=== PATIENT | female | born 1995 | race Caucasian/White ===

== ENCOUNTER 2017-04-04 13:04 | Emergency (ER) | payer OTHER ==
[2017-04-04 13:20] VITALS: O2SAT 97
[2017-04-04 13:45] LABS: BASOPHIL % 0.1 % (0.0-0.4); Eosinophil % 0.3 % (0.00-5.0); Granulocytes % 90.4 % (36.0-66.0); Lymphocytes % 4.8 % (24.0-44.0); Mean Cell Volume 89.4 fl (78-100); Mean Corpuscular Hemoglobin 29.8 pg (26-32); Mean Platelet Volume 10.8 fl (6-9.5); Monocytes % 4.4 % (0.0-12.0); Platelet Count 274 K/mm3 (150-450); Red Cell Distribution Width 13.5 % (11.5-14.0); White Blood Count 14.9 K/mm3 (4.0-10.5)
[2017-04-04 14:02] LABS: ALBUMIN 3.2 g/dL (3.4-5.0); ALKALINE PHOSPHATASE 86 U/L (46-116); ANION GAP 15.1 MEQ/L (5-15); BLOOD UREA NITROGEN 10 mg/dL (9-20); CHLORIDE 106 mEq/L (98-107); Carbon Dioxide 24.2 mEq/L (21-32); Glucose 100 MG/DL (70-110); LIPASE 72 U/L (73-393); Potassium 3.2 mEq/L (3.5-5.1); SGOT/AST 14 U/L (15-37); SGPT/ALT 12 U/L (12-78); SODIUM 142 mEq/L (136-145); Total Protein 7.5 gm/dL (6.4-8.2)
--- NOTE | 2017-04-04 14:13 | XRAY ---
Indication: Abdominal pain. Two-dimensional right upper quadrant abdominal sonogram performed. Comparison: None Gallbladder normally distended without gallstones, wall thickening, or pericholecystic fluid. Common bile duct measures 4.1 mm. No intrahepatic biliary distention. Remaining visualized portions of the liver, pancreas, and right kidney sonographically unremarkable. Right kidney measures 12.3 cm in length. No ascites. Impression: Negative gallbladder sonogram.
[2017-04-04] MEDS ORDERED: ROCEPHIN 1 Gm-D5w 50 ml Bag** 1 G/50 ML IVPB IV ONE (14:23)
--- NOTE | 2017-04-04 14:31 | ERPHSYRPT ---
- History of Present Illness Time Seen by Provider: 04/04/17 13:15 Historian: patient Exam Limitations: no limitations Patient Subjective Stated Complaint: pt states at 0900 this morning she began having right upper quad abdominal pain. pt states she was seen at [facility] and then decided she wanted see in the er. Triage Nursing Assessment: pt pink, warm, dry. abdomen lasrge. soft. tender right upper quad. bowel sounds present in all 4 quads. pt afebrile. Timing/Duration: today Activities at Onset: other (at fatty and fried foods last pm) Quality: sharpness Abdominal Pain Onset Location: RUQ Pain Radiation: no radiation Severity of Pain-Max: severe Severity of Pain-Current: severe Modifying Factors: Improves With: nothing Associated Symptoms: vomiting Previous symptoms: no prior history Allergies/Adverse Reactions: No Known Drug Allergies Allergy (Unverified 04/04/17 13:19) Home Medications: Calcium/D3/K/FA/B12/C/Minerals [Ortho-Tabs] 1 each PO UD 04/04/17 [History] Hx Tetanus, Diphtheria Vaccination/Date Given: Yes (up to date) Hx Influenza Vaccination/Date Given: Yes Hx Pneumococcal Vaccination/Date Given: No Immunizations Up to Date: Yes - Review of Systems Constitutional: No Symptoms Eyes: No Symptoms Ears, Nose, & Throat: No Symptoms Respiratory: No Symptoms Cardiac: No Symptoms Abdominal/Gastrointestinal: Abdominal Pain, Vomiting, Diarrhea, No Constipation , No Hematemesis, No Hematochezia, No Melena Musculoskeletal: No Symptoms Skin: No Symptoms Neurological: No Symptoms Hematologic/Lymphatic: No Symptoms Immunological/Allergic: No Symptoms - Past Medical History Pertinent Past Medical History: No Psycho-Social History: Other - Past Surgical History Past Surgical History: Yes Female Surgical History: Section - Social History Smoking Status: Current every day smoker How long have you smoked: 4 Exposure to second hand smoke: No Drug Use: none Patient Lives Alone: No - Female History Hx Last Menstrual Period: midFebruary 2017 Hx Now: No - Nursing Vital Signs Nursing Vital Signs: Initial Vital Signs Temperature 99.1 F Temperature Source Oral Pulse Rate 97 Respiratory Rate 18 Blood Pressure [Right Arm] 164/107 Pain Intensity 10 - Physical Exam General Appearance: moderate distress Eye Exam: eyes nml inspection Ears, Nose, Throat Exam: normal ENT inspection, pharynx normal Neck Exam: normal inspection, non-tender, supple, full range of motion Respiratory Exam: normal breath sounds, lungs clear, airway intact Cardiovascular Exam: regular rate/rhythm, normal heart sounds, normal peripheral pulses Gastrointestinal/Abdomen Exam: soft, normal bowel sounds, tenderness (RUQ) Extremity Exam: normal inspection, normal range of motion, pelvis stable Neurologic Exam: alert, oriented x 3, cooperative Skin Exam: normal color, warm, dry SpO2 Interpretation: normal SpO2: 97 Oxygen Delivery: Room Air - Course Nursing assessment & vital signs reviewed: Yes - Radiology Ultrasound Exam Gallbladder Ultrasound: tele radiology report, negative Ordered Tests: Active Orders 24 hr Category Date Time Status IV Insertion STAT Care 04/04/17 13:21 Active cath [Cath for Specimen-Straight] STAT Care 04/04/17 13:40 Active GALLBLADDER [US] Stat Exams 04/04/17 13:19 Completed CBC W DIFF Stat Lab 04/04/17 13:35 Completed CMP Stat Lab 04/04/17 13:35 Completed HCG,QUALITATIVE URINE Stat Lab 04/04/17 13:39 Completed LIPASE Stat Lab 04/04/17 13:35 Completed Lab/Rad Data: Laboratory Result Diagrams 04/04/17 13:35 04/04/17 13:35 Laboratory Results 04/04/17 04/04/17 04/04/17 Range/Units 13:39 13:35 13:35 WBC 14.9 H (4.0-10.5) K/mm3 RBC 4.90 (4.1-5.4) M/mm3 Hgb 14.6 (12.0-16.0) gm/dl Hct 43.8 (35-47) % MCV 89.4 (78-100) fl MCH 29.8 (26-32) pg MCHC 33.3 (32-36) g/dl RDW 13.5 (11.5-14.0) % Plt Count 274 (150-450) K/mm3 MPV 10.8 H (6-9.5) fl Gran % 90.4 H (36.0-66.0) % Lymphocytes % 4.8 L (24.0-44.0) % Monocytes % 4.4 (0.0-12.0) % Eosinophils % 0.3 (0.00-5.0) % Basophils % 0.1 (0.0-0.4) % Basophils # 0.02 (0-0.4) Sodium 142 (136-145) mEq/L Potassium 3.2 L (3.5-5.1) mEq/L Chloride 106 (98-107) mEq/L Carbon Dioxide 24.2 (21-32) mEq/L Anion Gap 15.1 H (5-15) MEQ/L BUN 10 (9-20) mg/dL Creatinine 0.81 (0.55-1.30) mg/dl Estimated GFR > 60 ML/MIN Glucose 100 (70-110) MG/DL Calcium 8.7 (8.5-10.1) mg/dL Total Bilirubin 0.40 (0.2-1.0) mg/dL AST 14 L (15-37) U/L ALT 12 (12-78) U/L Alkaline Phosphatase 86 (46-116) U/L Serum Total Protein 7.5 (6.4-8.2) gm/dL Albumin 3.2 L (3.4-5.0) g/dL Lipase 72 L (73-393) U/L Urine HCG, Qual NEGATIVE (Negative) - Progress Progress: improved Will see patient in: office, other (PCP 1 week) Counseled pt/family regarding: lab results, diagnosis, need for follow-up, rad results - Departure Time of Disposition: 14:30 Departure Disposition: Home Clinical Impression: Abdominal pain Qualifiers: Abdominal location: right upper quadrant Qualified Code(s): R10.11 - Right upper quadrant pain Condition: Stable Critical Care Time: No Additional Instructions: See your doctor for referral for HIDA scan as oupatient only.
[2017-04-04 14:44] VITALS: BP 162/98; PULSE 100
== END 2017-04-04 14:45 | disposition home or self-care (01) ==
LOC: ED 13:04
DX: R10.11 Right upper quadrant pain (principal); R11.10 Vomiting, unspecified; R19.7 Diarrhea, unspecified
CPT/HCPCS: 36000; 36415; 76705; 80053; 83690; 84703; 85025; 99283; 99284; J0696; P9612

== ENCOUNTER 2018-03-30 21:32 | Observation (INO) | payer OTHER ==
[2018-03-30] MEDS ORDERED: Zofran 4 MG/2 ML VIAL IV ONE (21:42)
[2018-03-30] MEDS ORDERED: Hydromorphone 1 mg/ml Ampule IV ONE ×3 (21:42→23:38)
[2018-03-30] MEDS ORDERED: Sodium Chloride 0.9% 1000 ML 1,000 ML IV SCH (21:45)
[2018-03-30] MEDS ORDERED: Adacel Vial IM ONE ×2 (21:49→21:53)
[2018-03-30 21:50] LABS: BASOPHIL % 0.2 % (0.0-0.4); Basophil (Absolute #) 0.02 (0-0.4); Eosinophil % 0.5 % (0.00-5.0); Eosinophil (Absolute #) 0.07 (0-0.5); Granulocyte Absolute (ANC) 9.62 (1.4-6.9); Granulocytes % 73.3 % (36.0-66.0); Hematocrit 41.7 % (35-47); Hemoglobin 14.1 gm/dl (12.0-16.0); Lymphocyte (Absolute #) 2.67 (1.0-4.6); Lymphocytes % 20.3 % (24.0-44.0); Mean Cell Volume 88.2 fl (78-100); Mean Corpuscular Hemoglobin 29.8 pg (26-32); Mean Corpuscular Hgb Concent. 33.8 g/dl (32-36); Mean Platelet Volume 10.7 fl (6-9.5); Monocyte (Absolute #) 0.75 (0.0-1.3); Monocytes % 5.7 % (0.0-12.0); Platelet Count 308 K/mm3 (150-450); Red Blood Count 4.73 M/mm3 (4.1-5.4); Red Cell Distribution Width 13.6 % (11.5-14.0); White Blood Count 13.1 K/mm3 (4.0-10.5)
[2018-03-30] MEDS ORDERED: DILAUDID 2 MG INJECTION ONE ×2 (21:52→23:49)
[2018-03-30] MEDS ORDERED: Zofran 4 MG/2 ML VIAL ONE (21:52)
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
[2018-03-30 22:05] LABS: ALBUMIN 4.3 g/dL (3.5-5.0); ALKALINE PHOSPHATASE 93 U/L (38-126); AMYLASE 62 U/L (30-110); ANION GAP 11.3 MEQ/L (5-15); BLOOD UREA NITROGEN 16 mg/dL (7-17); CHLORIDE 100 mmol/L (98-107); Calcium 9.3 mg/dL (8.4-10.2); Carbon Dioxide 28 mmol/L (22-30); Creatinine 1 0.75 mg/dL (0.52-1.04); Glucose 151 mg/dL (74-106); LIPASE 44 U/L (23-300); SGOT/AST 20 U/L (14-36); SGPT/ALT 19 U/L (0-35); SODIUM 136 mmol/L (137-145); Total Protein 7.3 g/dL (6.3-8.2)
[2018-03-30 22:08] LABS: ETHYL ALCOHOL < 10 mg/dL (0-10); Potassium 2.6 mmol/L (3.5-5.1)
[2018-03-30] MEDS ORDERED: BACIGUENT PACKET ONE (22:30)
[2018-03-30] MEDS ORDERED: ROCEPHIN 1 Gm-D5w 50 ml Bag** 1 G/50 ML IVPB IV STA (23:56)
[2018-03-31] MEDS ORDERED: POTASSIUM CHLORIDE 20 mEq IN WATER 100ML 20 MEQ/100 ML BAG IV ONE ×3 (00:26→06:02)
[2018-03-31] MEDS ORDERED: Zofran 4 MG/2 ML VIAL IV PRN (01:10)
[2018-03-31] MEDS ORDERED: MORPHINE SULFATE 4 MG INJ IV PRN (01:10)
[2018-03-31] MEDS ORDERED: Sodium Chloride 0.9% 1000 ML 1,000 ML IV SCH (01:15)
[2018-03-31] MEDS ORDERED: POTASSIUM CHLORIDE 20 mEq IN WATER 100ML 100 ML IV ONE (01:26)
[2018-03-31] MEDS: NORCO 5/325 MG PO PRN ×2 (02:37→08:21)
[2018-03-31 03:04] LABS: Appearance CLEAR (CLEAR); Bilirubin NEGATIVE (NEGATIVE); Blood NEGATIVE Ery/ul (0-5); Glucose NEGATIVE (NEGATIVE); Ketones NEGATIVE (NEGATIVE); Leukocyte Esterase NEGATIVE (NEGATIVE); Nitrite NEGATIVE (NEGATIVE); Protein,Urine Dip NEGATIVE (Negative); Urobilinogen NORMAL mg/dL (0-1)
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
[2018-03-31] MEDS ORDERED: PERCOCET TABLET 5/325MG PO PRN (09:49)
[2018-03-31] MEDS ORDERED: Cyclobenzaprine 10 MG PO PRN (09:49)
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
[2018-03-31] MEDS ORDERED: Klor Con 10 MEQ PO SCH (10:00)
[2018-03-31] MEDS ORDERED: AQUAPHOR OINTMENT 50 GM TP SCH (10:00)
[2018-03-31 10:31] LABS: ANION GAP 8.8 MEQ/L (5-15); BLOOD UREA NITROGEN 9 mg/dL (7-17); CHLORIDE 105 mmol/L (98-107); Calcium 8.3 mg/dL (8.4-10.2); Carbon Dioxide 27 mmol/L (22-30); Creatinine 1 0.56 mg/dL (0.52-1.04); Glucose 120 mg/dL (74-106); Potassium 3.4 mmol/L (3.5-5.1); SODIUM 137 mmol/L (137-145)
[2018-03-31 12:03] VITALS: BP 165/122; PULSE 100; O2SAT 95
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
[2018-03-31] MEDS ORDERED: ROCEPHIN 1 Gm-D5w 50 ml Bag** 1 G/50 ML IVPB IV SCH (22:00)
== END 2018-03-31 14:35 | disposition home or self-care (01) ==
LOC: ED 21:32 → MED SURG 03-31 02:17
PROVIDERS: ADMIT Family Medicine; ATTEND Family Medicine
DX: S40.212A Abrasion of left shoulder, initial encounter (principal); S80.212A Abrasion, left knee, initial encounter; S06.0X0A Concussion without loss of consciousness, initial encounter; S02.2XXA Fracture of nasal bones, initial encounter for closed fracture; M25.519 Pain in unspecified shoulder; V89.2XXA Person injured in unspecified motor-vehicle accident, traffic, initial encounter; E87.6 Hypokalemia; Z72.0 Tobacco use
CPT/HCPCS: 36415; 70450; 70486; 71260; 72125; 73030; 73080; 73110; 73562; 74177; 80048; 80053; 80307; 81002; 82150; 83690; 83735; 85025; 90471; 90715; 93005; 93268; 94760; 96360; 96361; 96365; 96366; 96367; 96374; 96375; 96376; 99285; J0696; J1170; J2270; J2405; J3480; A9270-GY; G0378; G0480

== ENCOUNTER 2019-01-11 21:34 | Emergency (ER) | payer OTHER | END 2019-01-11 23:46 | disposition home or self-care (01) | LOC: ED 21:34 ==

== ENCOUNTER 2019-06-10 23:26 | Emergency (ER) | payer OTHER ==
--- NOTE | 2019-06-10 23:56 | ERPHSYRPT ---
- History of Present Illness Time Seen by Provider: 06/10/19 23:45 Source: patient, family Exam Limitations: no limitations Patient Subjective Stated Complaint: pt states, "I walked out of a room upstairs and a bug flew into me and I fell down the stairs". Triage Nursing Assessment: pt alert and oriented, pleasant, ambulated into er. Pt fell down stairs landing on her side, c/o lt sided neck pain. Pt states, "I can't hardly move it on the left side". Lungs clear, heart tones reg, abd soft with active bs x4 quad, non-tender. Physician History: 24 y/o white female present with neck pain after a fall forward down stairs. pt states a bug flew at her face as she began stepping down steps and then lost her balance Occurred: just prior to arrival Reason for Fall: lost balance Injuries/Pain Location: head, neck Loss of Consciousness: no loss of consciousness Quality: aching Severity of Pain-Max: moderate Severity of Pain-Current: moderate Modifying Factors: Improves With: movement (hurts her neck) Associated Symptoms (Fall): neck pain, No abdominal pain, No back pain, No chest pain, No extremity injury, No muscle spasms, No ringing in ears, No slurred speech, No vomiting, No vision changes Allergies/Adverse Reactions: No Known Drug Allergies Allergy (Verified 01/11/19 21:45) Home Medications: Citalopram Hydrobromide 20 mg* [ceLEXa 20 MG] 1 tab PO DAILY 01/11/19 [ History] Prazosin HCl 1 mg PO HS 06/10/19 [History] Sertraline HCl 50 mg [Zoloft 50 mg Tablet] 50 mg PO DAILY 06/10/19 [History] Hx Tetanus, Diphtheria Vaccination/Date Given: Yes Hx Influenza Vaccination/Date Given: Yes Hx Pneumococcal Vaccination/Date Given: No Immunizations Up to Date: Yes - Review of Systems Constitutional: No Symptoms Eyes: No Symptoms Ears, Nose, & Throat: No Symptoms Respiratory: No Symptoms Cardiac: No Symptoms Abdominal/Gastrointestinal: No Symptoms Genitourinary Symptoms: No Symptoms Musculoskeletal: Neck Pain, Fall, Injury Skin: No Symptoms Neurological: No Symptoms, Headache Psychological: No Symptoms Endocrine: No Symptoms Hematologic/Lymphatic: No Symptoms Immunological/Allergic: No Symptoms All Other Systems: Reviewed and Negative - Past Medical History Pertinent Past Medical History: Yes Neurological History: Migraines ENT History: No Pertinent History Cardiac History: No Pertinent History Respiratory History: No Pertinent History Endocrine Medical History: No Pertinent History Musculoskeletal History: Fractures GI Medical History: No Pertinent History History: No Pertinent History Psycho-Social History: Anxiety, Depression, Other Female Reproductive Disorders: No Pertinent History Other Medical History: Fracture Pelvis 15 Years Old, PTSD, - Past Surgical History Past Surgical History: Yes Neuro Surgical History: No Pertinent History Cardiac: No Pertinent History Respiratory: No Pertinent History Gastrointestinal: No Pertinent History Genitourinary: No Pertinent History Musculoskeletal: No Pertinent History, Orthopedic Surgery Female Surgical History: Section Other Surgical History: Finger surgery Dec 17 (HX OF 2 FINGER SURGERIES) - Social History Smoking Status: Current every day smoker How long have you smoked: 8 yrs Exposure to second hand smoke: Yes Drug Use: none Patient Lives Alone: No - Female History Hx Now: No - Nursing Vital Signs Nursing Vital Signs: Initial Vital Signs Temperature 98.9 F 06/10/19 23:27 Pulse Rate 102 H 06/10/19 23:27 Respiratory Rate 18 06/10/19 23:27 Blood Pressure 169/121 06/10/19 23:27 O2 Sat by Pulse Oximetry 96 06/10/19 23:27 Pain Scale Pain Intensity 7 - Johnny Coma Score Best Eye Response (Kinsey): (4) open spontaneously Best Verbal Response (Kinsey): (5) oriented Best Motor Response (Johnny): (6) obeys commands Kinsey Total: 15 - Physical Exam General Appearance: mild distress, alert, anxiety Head Injury: no evidence of injury, tenderness, No active bleeding, No Tracey's Sign, No contusions, No ecchymosis, No lacerations, No raccoon eyes, No swelling Eye Exam: PERRL/EOMI, eyes nml inspection, No photophobia ENT Exam: airway nml, nml ext.inspection, No evidence of ENT injury Neck Exam: trachea midline, full range of motion, normal alignment, normal inspection, muscle spasm, pain on movement of neck, stiff neck, tenderness Respiratory/Chest Exam: No chest tenderness, No respiratory distress, No crepitus, No rib tenderness Cardiovascular Exam: normal heart sounds, normal peripheral pulses, No regular rate/rhythm Gastrointestinal Exam: soft, normal bowel sounds, No tenderness, No guarding Rectal Exam: not done Back Exam: normal inspection, normal range of motion, No CVA tenderness, No vertebral tenderness Extremity Exam: normal inspection, normal range of motion, pelvis stable Neurologic Exam: alert, oriented x 3, cooperative, cartridge loader II-XII nml as tested, normal mood/affect, nml cerebellar function, nml station & gait, sensation nml Skin Exam: normal color, warm, dry SpO2 Interpretation: normal SpO2: 96 O2 Delivery: Room Air - Course Nursing assessment & vital signs reviewed: Yes Ordered Tests: Active Orders 24 hr Category Date Time Status CERVICAL SPINE WO CONTRAST [CT] Stat Exams 06/10/19 23:56 Taken HEAD WITHOUT CONTRAST [CT] Stat Exams 06/10/19 23:56 Taken Medication Summary Discontinued Medications Generic Name Dose Route Start Last Admin Trade Name Freq PRN Reason Stop Dose Admin Cyclobenzaprine HCl 10 mg 06/11/19 00:29 Cyclobenzaprine 10 Mg PO 06/11/19 00:30 STAT ONE Oxycodone/Acetaminophen 1 tab 06/11/19 00:28 Percocet Tablet 5/325mg PO 06/11/19 00:29 STAT STA Prednisone 10 mg 06/11/19 00:29 Deltasone 10 Mg PO 06/11/19 00:30 STAT ONE - Progress Progress: improved Progress Note: 06/11/19 01:[address] cspine- no acute process. Counseled pt/family regarding: diagnosis, need for follow-up, rad results - Departure Departure Disposition: Home Clinical Impression: Fall, Cervical strain, acute Condition: Stable Critical Care Time: No Referrals: JOS NUÑEZ [Primary Care Provider] - Additional Instructions: ice pack to area 3 times daily for 2 days. follow up with primary doctor for persistent symptoms Prescriptions: Hydrocodone/APAP 5/325 [Sagle 5/325 mg] 1 each PO Q8H PRN PRN #10 tablet MDD 3 PRN Reason: Pain Carisoprodol 350 mg [Soma 350 mg] 350 mg PO Q12H PRN PRN #8 tablet PRN Reason: Muscle Spasms Prednisone 10 mg [Deltasone 10 mg] 10 mg PO TID #12 tablet
[2019-06-11] MEDS ORDERED: Cyclobenzaprine 10 MG ONE (01:16)
[2019-06-11] MEDS ORDERED: PERCOCET TABLET 5/325MG ONE (01:16)
[2019-06-11] MEDS: PERCOCET TABLET 5/325MG PO STA (01:30)
[2019-06-11] MEDS: Cyclobenzaprine 10 MG PO ONE (01:30)
[2019-06-11] MEDS: DELTASONE 10 MG PO ONE (01:31)
[2019-06-11 01:55] VITALS: BP 148/99; PULSE 87; O2SAT 98
--- NOTE | 2019-06-11 09:01 | XRAY ---
Indication: Left head injury and headache following fall. Multiple contiguous axial images obtained through the head without contrast. Comparison: March 30, 2018. Again normal appearing brain parenchyma, ventricles, and bony calvarium. Visualized paranasal sinuses and mastoid air cells are clear. Impression: Normal CT head without contrast exam. Comment: Preliminary interpretation was made by [facility]. No discrepancy. CT DI 49.27
--- NOTE | 2019-06-11 09:03 | XRAY ---
Indication: Left neck pain following fall. Multiple contiguous axial images obtained through the cervical spine. Sagittal and coronal reformatted images obtained. Comparison: March 30, 2018. Axial images again negative for acute fracture, suspicious bony lesions, or spinal canal stenosis. Sagittal and coronal reformatted images again demonstrates straightening of the cervical lordosis. Vertebral body heights and disc spaces maintained. No acute compression fracture, subluxation, or jumped facet. Normal appearing craniocervical junction. Visualized noncontrasted soft tissues including lung apices unremarkable. Impression: 1. Stable cervical lordotic straightening, positional versus paraspinal spasm. 2. Remaining CT cervical spine is negative. Comment: Preliminary interpretation was made by [facility]. No critical discrepancy. CT DI 55.49
== END 2019-06-11 01:52 | disposition home or self-care (01) ==
LOC: ED 23:26
DX: S16.1XXA Strain of muscle, fascia and tendon at neck level, initial encounter (principal); W10.8XXA Fall (on) (from) other stairs and steps, initial encounter
CPT/HCPCS: 70450; 72125; 99284; A9270-GY

== ENCOUNTER 2019-08-29 08:15 | Emergency (ER) | payer OTHER ==
--- NOTE | 2019-08-29 08:18 | ERPHSYRPT ---
- History of Present Illness Time Seen by Provider: 08/29/19 08:17 Source: patient Exam Limitations: no limitations Physician History: 24 y/o riight handed white female presents with left hand pain. 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 pt has had surgery left hand 3rd digit with metal jl in place. this is where the pop and pain were. Occurred: just prior to arrival Method of Injury: other (lifting) Quality: aching Severity of Pain-Max: mild Severity of Pain-Current: mild Extremities Pain Location: 3rd finger: left Modifying Factors: Improves With: movement Associated Symptoms: none Allergies/Adverse Reactions: No Known Drug Allergies Allergy (Verified 08/29/19 08:27) Hx Tetanus, Diphtheria Vaccination/Date Given: Yes Hx Influenza Vaccination/Date Given: Yes Hx Pneumococcal Vaccination/Date Given: No - Review of Systems Constitutional: No Symptoms Eyes: No Symptoms Ears, Nose, & Throat: No Symptoms Respiratory: No Symptoms Cardiac: No Symptoms Abdominal/Gastrointestinal: No Symptoms Genitourinary Symptoms: No Symptoms Musculoskeletal: Other (left 3rd finger pain) Skin: No Symptoms Neurological: No Symptoms Psychological: No Symptoms Endocrine: No Symptoms Hematologic/Lymphatic: No Symptoms Immunological/Allergic: No Symptoms All Other Systems: Reviewed and Negative - Past Medical History Pertinent Past Medical History: Yes Neurological History: Migraines ENT History: No Pertinent History Cardiac History: No Pertinent History Respiratory History: No Pertinent History Endocrine Medical History: No Pertinent History Musculoskeletal History: Fractures GI Medical History: No Pertinent History History: No Pertinent History Psycho-Social History: Anxiety, Depression, Other Female Reproductive Disorders: No Pertinent History Other Medical History: Fracture Pelvis 15 Years Old, PTSD, - Past Surgical History Past Surgical History: Yes Neuro Surgical History: No Pertinent History Cardiac: No Pertinent History Respiratory: No Pertinent History Gastrointestinal: No Pertinent History Genitourinary: No Pertinent History Musculoskeletal: No Pertinent History, Orthopedic Surgery Female Surgical History: Section Other Surgical History: Finger surgery Dec 17 (HX OF 2 FINGER SURGERIES) - Social History Smoking Status: Current every day smoker How long have you smoked: 8 yrs Exposure to second hand smoke: Yes Drug Use: none Patient Lives Alone: No - Nursing Vital Signs Nursing Vital Signs: Initial Vital Signs Temperature 98.2 F 08/29/19 08:19 Pulse Rate 101 H 08/29/19 08:19 Respiratory Rate 16 08/29/19 08:19 Blood Pressure 145/119 08/29/19 08:19 O2 Sat by Pulse Oximetry 96 08/29/19 08:19 Pain Scale Pain Intensity 5 - Physical Exam General Appearance: no apparent distress, alert, anxiety Eyes, Ears, Nose, Throat Exam: normal ENT inspection, moist mucous membranes Neck Exam: normal inspection, non-tender, supple, full range of motion Cardiovascular/Respiratory Exam: chest non-tender Abdominal Exam: non-tender Back Exam: normal inspection, normal range of motion, No CVA tenderness, No vertebral tenderness Shoulder Exam: normal inspection, non-tender, no evidence of injury, normal ROM Elbow/Forearm Exam: normal inspection, non-tender, no evidence of injury, normal ROM Wrist Exam: normal inspection, non-tender, no evidence of injury, normal ROM Hand Exam: normal inspection, no evidence of injury, normal ROM (pt chronically can only flex or extend 3rd dip joint after metal jl placement) Neuro/Tendon Exam: normal sensation, normal motor functions, normal tendon functions Mental Status Exam: alert, oriented x 3, cooperative Skin Exam: normal color, warm, dry SpO2 Interpretation: normal O2 Delivery: Room Air - Course Nursing assessment & vital signs reviewed: Yes Ordered Tests: Active Orders 24 hr Category Date Time Status HAND (MINIMUM 3 VIEWS) Stat Exams 08/29/19 08:39 Completed - Progress Progress: unchanged Progress Note: 08/29/19 09:20 xray left hand- no acute fx or dislocation Counseled pt/family regarding: diagnosis, need for follow-up, rad results - Departure Departure Disposition: Home Clinical Impression: Finger pain, left Condition: Stable Critical Care Time: No Referrals: JOS NUÑEZ [Primary Care Provider] - Additional Instructions: ice pack to area 3 times daily. follow up with hand surgeon or primary doctor for persistent symptoms. tylenol and ibuprofen for pain
--- NOTE | 2019-08-29 09:18 | XRAY ---
Indication: Pain with lifting. History 3rd finger surgery. Comparison: None 3 views of the left hand demonstrates 3rd finger soft tissue linear radiopacity presumed related to patient's surgery. No other bony, articular, or soft tissue abnormalities.
[2019-08-29 09:32] VITALS: BP 142/108; PULSE 81; O2SAT 97
== END 2019-08-29 09:30 ==
LOC: ED 08:15
DX: Z98.890 Other specified postprocedural states (principal); X50.9XXA Other and unspecified overexertion or strenuous movements or postures, initial encounter
CPT/HCPCS: 73130; 99283

== ENCOUNTER 2019-10-24 08:51 | Emergency (ER) | payer OTHER ==
--- NOTE | 2019-10-24 09:40 | XRAY ---
Indication: Right neck pain 1.5 weeks. No known injury. Comparison: CT cervical spine June 10, 2019. 3 views of the cervical spine unchanged again with cervical lordotic straightening. Vertebral body heights/disc spaces maintained. No new/acute findings.
--- NOTE | 2019-10-24 09:43 | ERPHSYRPT ---
- History of Present Illness Time Seen by Provider: 10/24/19 09:00 Source: patient Exam Limitations: no limitations Patient Subjective Stated Complaint: pt reports neck pain for approx 1.5 weeks, states that her pain is to the posterior neck. pt denies any injury or accident at this time. pt reports intermittent dizziness upon standing as well. Triage Nursing Assessment: pt is aox3, pupils perrl, afebrile, resps easy and non labored, cap refill < 3 seconds, radial pulses strong and equal, pt sensation and ROM intact. no obvious injury noted, skin is intact. pt ambulated to trt room with no difficulties. Physician History: 24 y o female who presents with pain in the left side of the neck from the shoulder level to the occiput. she denies any specific injury and the pain has been present for weeks. Review indicates his CTs of [facility] includin 2008, , 2018. previous CT scans of her neck indicate paraspinal spasm. Timing/Duration: day(s) (10) Severity: moderate Modifying Factors: Improves With: movement, acetaminophen Associated Symptoms: headaches Allergies/Adverse Reactions: No Known Drug Allergies Allergy (Verified 10/24/19 09:13) Hx Tetanus, Diphtheria Vaccination/Date Given: Yes Hx Influenza Vaccination/Date Given: No Hx Pneumococcal Vaccination/Date Given: No Immunizations Up to Date: Yes - Review of Systems Constitutional: No Fever, No Chills Eyes: No Symptoms Ears, Nose, & Throat: No Symptoms Respiratory: No Cough, No Dyspnea Cardiac: No Chest Pain, No Edema, No Syncope Abdominal/Gastrointestinal: No Abdominal Pain, No Nausea, No Vomiting, No Diarrhea Genitourinary Symptoms: No Dysuria Musculoskeletal: Joint Pain ( right side of the neck ttender to palpation), No Back Pain, No Neck Pain Skin: No Rash Neurological: No Dizziness, No Focal Weakness, No Sensory Changes Psychological: No Symptoms Endocrine: No Symptoms All Other Systems: Reviewed and Negative - Past Medical History Pertinent Past Medical History: Yes Neurological History: Migraines ENT History: No Pertinent History Cardiac History: No Pertinent History Respiratory History: No Pertinent History Endocrine Medical History: No Pertinent History Musculoskeletal History: Fractures GI Medical History: No Pertinent History History: No Pertinent History Psycho-Social History: Anxiety, Depression, Other Female Reproductive Disorders: No Pertinent History Other Medical History: Fracture Pelvis 15 Years Old, PTSD, - Past Surgical History Past Surgical History: Yes Neuro Surgical History: No Pertinent History Cardiac: No Pertinent History Respiratory: No Pertinent History Gastrointestinal: No Pertinent History Genitourinary: No Pertinent History Musculoskeletal: No Pertinent History, Orthopedic Surgery Female Surgical History: Section Other Surgical History: Finger surgery Dec 17 (HX OF 4 FINGER SURGERIES) - Social History Smoking Status: Current every day smoker How long have you smoked: 5 Exposure to second hand smoke: Yes Drug Use: none Patient Lives Alone: No - Female History Hx Last Menstrual Period: 10/21/19 Hx Now: No - Nursing Vital Signs Nursing Vital Signs: Initial Vital Signs Temperature 98.4 F 10/24/19 08:57 Pulse Rate 107 H 10/24/19 08:57 Respiratory Rate 20 10/24/19 08:57 Blood Pressure 163/120 10/24/19 08:57 O2 Sat by Pulse Oximetry 98 10/24/19 08:57 Pain Scale Pain Intensity 7 - Physical Exam General Appearance: no apparent distress, alert Eye Exam: PERRL/EOMI, eyes nml inspection Ears, Nose, Throat Exam: normal ENT inspection, TMs normal, pharynx normal, moist mucous membranes Neck Exam: limited range of motion, other (tenderness to palpation along the right side of the neck) Respiratory Exam: normal breath sounds, lungs clear, No respiratory distress Cardiovascular Exam: regular rate/rhythm, normal heart sounds, normal peripheral pulses Gastrointestinal/Abdomen Exam: soft, normal bowel sounds, No tenderness, No mass Back Exam: normal inspection, normal range of motion, No CVA tenderness, No vertebral tenderness Extremity Exam: normal inspection, normal range of motion, pelvis stable Neurologic Exam: alert, oriented x 3, cooperative, normal mood/affect, nml cerebellar function, nml station & gait, sensation nml, No motor deficits Skin Exam: normal color, warm, dry, No rash Lymphatic Exam: No adenopathy SpO2: 98 - Course Nursing assessment & vital signs reviewed: Yes - Radiology Exams C-Spine X-ray Interpretation: Other (no fracture no dislocation no subluxation loss of lordosis consistent with paraspinal muscle spasm) Ordered Tests: Active Orders 24 hr Category Date Time Status CERVICAL SPINE (2 OR 3 VIEW) Stat Exams 10/24/19 09:28 Completed - Progress Progress: unchanged Counseled pt/family regarding: need for follow-up - Departure Departure Disposition: Home Clinical Impression: Cervical strain, Hypertension Condition: Stable Critical Care Time: No Referrals: JOS NUÑEZ [Primary Care Provider] - Instructions: Cervical Muscle Strain (DC) Prescriptions: Hydrocodone/APAP 5-325 Tab^^^ [[place] 5-325 Tablet^^^] 1 tab PO Q6HPRN PRN #10 tablet MDD 6 PRN Reason: Pain Cyclobenzaprine HCl 10 mg [Flexeril 10 MG] 10 mg PO TID #12 tablet Diclofenac Sodium 50 mg [Voltaren 50 mg] 50 mg PO TID 5 Days #15 tablet.ec Hydrochlorothiazide 25 mg [hydroDIURIL 25 MG] 25 mg PO DAILY #10 tablet
[2019-10-24 09:51] VITALS: PULSE 98
[2019-10-24 10:04] VITALS: O2SAT 98
[2019-10-24 10:39] VITALS: BP 164/125
== END 2019-10-24 10:40 | disposition home or self-care (01) ==
LOC: ED 08:51
DX: S16.1XXA Strain of muscle, fascia and tendon at neck level, initial encounter (principal); I10 Essential (primary) hypertension; M54.2 Cervicalgia; R51 Headache
CPT/HCPCS: 72040; 99283

== ENCOUNTER 2021-04-13 07:04 | Emergency (ER) | payer OTHER ==
[2021-04-13] MEDS ORDERED: Sodium Chloride 0.9% 1000 ML 1,000 ML IV STA (07:21)
--- NOTE | 2021-04-13 07:21 | ERPHSYRPT ---
- History of Present Illness Time Seen by Provider: 04/13/21 07:20 Historian: patient Exam Limitations: no limitations Patient Subjective Stated Complaint: Abdominal pain Triage Nursing Assessment: Patient ambulated back to ED and transferred self to bed. Patient A+O X3. Patient's skin pink, warm and dry. Patient complains of lower abdominal cramping 4/10 since last week that has gotten worse. Patient took pregnacy test last week with a positive result. Patient states she had vaginal bleeding X 1 day last week. Abdomen soft and round with BS X 4. Patient also complains of intermitent N/V. Physician History: This is a 26-year-old white female who has had 2 sections in the past and finger surgeries. She has not had a cholecystectomy or appendectomy in the past. Patient has a history of migraine headaches, epilepsy and depression. He is not on any medication at this time. Patient states approximately 1 to 2 weeks ago she was having some right-sided abdominal pain and there was some changes in her menstruation. She took a test last week and it showed a positive test. She has felt bloated with pain in the right lower quadrant. She describes the pain as cramping and nonradiating. She has had intermittent nausea and vomiting. She had one episode of heavy vaginal bleeding last week but none since that time. Because of her persistent pain in the right lower quadrant, she comes to the emergency room for evaluation and management. Timing/Duration: week(s) (1 week), intermittent, gradual onset Activities at Onset: none Quality: cramping Abdominal Pain Onset Location: RLQ Pain Radiation: no radiation Severity of Pain-Max: moderate Severity of Pain-Current: mild Modifying Factors: Improves With: vomiting Associated Symptoms: nausea, vomiting, No chest pain, No diarrhea, No loss of appetite Previous symptoms: no prior history Allergies/Adverse Reactions: No Known Drug Allergies Allergy (Verified 04/13/21 07:12) Hx Tetanus, Diphtheria Vaccination/Date Given: Yes Hx Influenza Vaccination/Date Given: No Hx Pneumococcal Vaccination/Date Given: No Immunizations Up to Date: Yes Travel Risk - International Travel Have you traveled outside of the country in past 3 weeks: No - Coronavirus Screening Are you exhibiting any of the following symptoms?: No Close contact with a COVID-19 positive Pt in past 14-21 Days: No - Vaccine Status Have you recieved a Covid-19 vaccination: No - Review of Systems Constitutional: No Symptoms Eyes: No Symptoms Ears, Nose, & Throat: No Symptoms Respiratory: No Symptoms Cardiac: No Symptoms Abdominal/Gastrointestinal: Abdominal Pain (Right lower quadrant), Nausea, Vomiting Genitourinary Symptoms: No Symptoms Musculoskeletal: No Symptoms Skin: No Symptoms Neurological: No Symptoms Psychological: No Symptoms Endocrine: No Symptoms Hematologic/Lymphatic: No Symptoms Immunological/Allergic: No Symptoms All Other Systems: Reviewed and Negative - Past Medical History Pertinent Past Medical History: Yes Neurological History: Migraines ENT History: No Pertinent History Cardiac History: No Pertinent History Respiratory History: No Pertinent History Endocrine Medical History: No Pertinent History Musculoskeletal History: Fractures GI Medical History: No Pertinent History History: No Pertinent History Psycho-Social History: Anxiety, Depression, Other Female Reproductive Disorders: No Pertinent History Other Medical History: Fracture Pelvis 15 Years Old, PTSD, - Past Surgical History Past Surgical History: Yes Neuro Surgical History: No Pertinent History Cardiac: No Pertinent History Respiratory: No Pertinent History Gastrointestinal: No Pertinent History Genitourinary: No Pertinent History Musculoskeletal: No Pertinent History, Orthopedic Surgery Female Surgical History: Section Other Surgical History: Finger surgery Dec 17 (HX OF 4 FINGER SURGERIES) - Social History Smoking Status: Current every day smoker How long have you smoked: 5 Exposure to second hand smoke: Yes Drug Use: none Patient Lives Alone: No - Female History Hx Last Menstrual Period: last month Hx Now: (unknown) - Nursing Vital Signs Nursing Vital Signs: Initial Vital Signs Temperature 98.0 F 04/13/21 07:14 Pulse Rate 90 04/13/21 07:14 Respiratory Rate 18 04/13/21 07:14 Blood Pressure 174/110 04/13/21 07:14 O2 Sat by Pulse Oximetry 99 04/13/21 07:14 Pain Scale Pain Intensity 4 - Physical Exam General Appearance: no apparent distress, alert, anxiety Eye Exam: PERRL/EOMI, post op pupil defect (L) Ears, Nose, Throat Exam: normal ENT inspection, moist mucous membranes Neck Exam: normal inspection, non-tender, supple, full range of motion Respiratory Exam: normal breath sounds, lungs clear, airway intact, No chest tenderness, No respiratory distress Cardiovascular Exam: regular rate/rhythm, normal heart sounds, normal peripheral pulses Gastrointestinal/Abdomen Exam: soft, normal bowel sounds, tenderness (Right lower quadrant), guarding, No rebound Pelvic Exam: not done Rectal Exam: not done Back Exam: normal inspection, normal range of motion, No CVA tenderness, No vertebral tenderness Extremity Exam: normal inspection, normal range of motion, pelvis stable Neurologic Exam: alert, oriented x 3, cooperative, cork sorter II-XII nml as tested, normal mood/affect, nml cerebellar function, nml station & gait, sensation nml Skin Exam: normal color, warm, dry Lymphatic Exam: No adenopathy SpO2 Interpretation: normal SpO2: 99 O2 Delivery: Room Air - Course Nursing assessment & vital signs reviewed: Yes Ordered Tests: Active Orders 24 hr Category Date Time Status IV Insertion STAT Care 04/13/21 07:21 Active ABDOMEN AND PELVIS W/0 CONTRAS [CT] Stat Exams 04/13/21 09:09 Completed BLOOD CULTURE Stat Lab 04/13/21 07:26 Received CBC W DIFF Stat Lab 04/13/21 07:40 Completed CULTURE,URINE Stat Lab 04/13/21 07:28 Received HCG QUALITATIVE,SERUM Stat Lab 04/13/21 07:40 Completed Lactic Acid Stat Lab 04/13/21 07:39 Completed Lactic Acid Stat Lab 04/13/21 09:46 Received UA W/RFX UR CULTURE Stat Lab 04/13/21 07:28 Completed Medication Summary Discontinued Medications Generic Name Dose Route Start Last Admin Trade Name Kiya PRN Reason Stop Dose Admin Sodium Chloride 1,000 mls @ 999 mls/hr 04/13/21 07:21 04/13/21 09:05 Sodium Chloride 0.9% 1000 Ml IV 04/13/21 08:21 Infused .Q1H1M STA Infusion Sodium Chloride Confirm 04/13/21 07:34 Sodium Chloride 0.9% 1000 Ml Administered 04/13/21 07:35 Dose 1,000 mls @ ud .ROUTE .STK-MED ONE Ceftriaxone Sodium/Dextrose 1 g in 50 mls @ 100 mls/hr 04/13/21 08:36 04/13/21 08:44 Rocephin 1 Gm-D5w 50 Ml Bag IV 04/13/21 09:05 100 ml/hr STAT STA 100 mls/hr Administration Ceftriaxone Sodium/Dextrose Confirm 04/13/21 08:39 Rocephin 1 Gm-D5w 50 Ml Bag Administered 04/13/21 08:40 Dose 1 g in 50 mls @ ud IV .STK-MED ONE Lab/Rad Data: Laboratory Result Diagrams 04/13/21 07:40 04/13/21 07:40 Laboratory Results 04/13/21 04/13/21 04/13/21 Range/Units 07:40 07:40 07:40 WBC 11.1 H (4.0-10.5) K/mm3 RBC 4.40 (4.1-5.4) M/mm3 Hgb 13.2 (12.0-16.0) gm/dl Hct 40.4 (35-47) % MCV 91.8 (78-100) fl MCH 30.0 (26-32) pg MCHC 32.7 (32-36) g/dl RDW 13.2 (11.5-14.0) % Plt Count 292 (150-450) K/mm3 MPV 10.5 (7.5-11.0) fl Gran % 75.2 H (36.0-66.0) % Eos # (Auto) 0.29 (0-0.5) Absolute Lymphs (auto) 1.71 (1.0-4.6) Absolute Monos (auto) 0.71 (0.0-1.3) Lymphocytes % 15.4 L (24.0-44.0) % Monocytes % 6.4 (0.0-12.0) % Eosinophils % 2.6 (0.00-5.0) % Basophils % 0.4 (0.0-0.4) % Absolute Granulocytes 8.38 H (1.4-6.9) Basophils # 0.04 (0-0.4) Sodium Direct 137 L (138-146) mmol/L Potassium 3.5 (3.5-4.9) mmol/L Chloride 99 (98-109) mmol/L Carbon Dioxide 24 (24-29) mmol/L Venous BUN 6 L (8-26) mg/dL Creatinine 0.5 L (0.6-1.3) mg/dL Glucose 133 H (70-105) mg/dL Lactic Acid (0.4-2.0) Ionized Calcium 1.24 (1.12-1.32) mmol/L Serum , Qual POSITIVE (Negative) Urine Color (YELLOW) Urine Appearance (CLEAR) Urine pH (5-6) Ur Specific [place] (1.005-1.025) Urine Protein (Negative) Urine Ketones (NEGATIVE) Urine Blood (0-5) Roly/ul Urine Nitrite (NEGATIVE) Urine Bilirubin (NEGATIVE) Urine Urobilinogen (0-1) mg/dL Ur Leukocyte Esterase (NEGATIVE) Urine WBC (Auto) (0-5) /HPF Urine RBC (Auto) (0-2) /HPF U Epithel Cells (Auto) (FEW) /HPF Urine Bacteria (Auto) (NEGATIVE) /HPF Urine Mucus (Auto) (NEGATIVE) /HPF Urine Culture Reflexed (NO) Urine Glucose (NEGATIVE) mg/dL 04/13/21 04/13/21 Range/Units 07:39 07:28 WBC (4.0-10.5) K/mm3 RBC (4.1-5.4) M/mm3 Hgb (12.0-16.0) gm/dl Hct (35-47) % MCV (78-100) fl MCH (26-32) pg MCHC (32-36) g/dl RDW (11.5-14.0) % Plt Count (150-450) K/mm3 MPV (7.5-11.0) fl Gran % (36.0-66.0) % Eos # (Auto) (0-0.5) Absolute Lymphs (auto) (1.0-4.6) Absolute Monos (auto) (0.0-1.3) Lymphocytes % (24.0-44.0) % Monocytes % (0.0-12.0) % Eosinophils % (0.00-5.0) % Basophils % (0.0-0.4) % Absolute Granulocytes (1.4-6.9) Basophils # (0-0.4) Sodium Direct (138-146) mmol/L Potassium (3.5-4.9) mmol/L Chloride (98-109) mmol/L Carbon Dioxide (24-29) mmol/L Venous BUN (8-26) mg/dL Creatinine (0.6-1.3) mg/dL Glucose (70-105) mg/dL Lactic Acid 2.3 H (0.4-2.0) Ionized Calcium (1.12-1.32) mmol/L Serum , Qual (Negative) Urine Color YELLOW (YELLOW) Urine Appearance SLIGHTLY CLOUDY (CLEAR) Urine pH 7.0 (5-6) Ur Specific [place] 1.009 (1.005-1.025) Urine Protein NEGATIVE (Negative) Urine Ketones NEGATIVE (NEGATIVE) Urine Blood NEGATIVE (0-5) Roly/ul Urine Nitrite POSITIVE (NEGATIVE) Urine Bilirubin NEGATIVE (NEGATIVE) Urine Urobilinogen NEGATIVE (0-1) mg/dL Ur Leukocyte Esterase NEGATIVE (NEGATIVE) Urine WBC (Auto) NONE (0-5) /HPF Urine RBC (Auto) NONE (0-2) /HPF U Epithel Cells (Auto) NONE (FEW) /HPF Urine Bacteria (Auto) PACKED (NEGATIVE) /HPF Urine Mucus (Auto) SLIGHT (NEGATIVE) /HPF Urine Culture Reflexed YES (NO) Urine Glucose NEGATIVE (NEGATIVE) mg/dL - Progress Progress Note: 04/13/21 07:54 Medical decision making: This patient has right lower quadrant abdominal pain. Is localized and there is guarding present. She has not been febrile. She has had nausea vomiting. Is been intermittently yet persistent present over the last week or so. The plan for her is to determine if she is truly in fact . If she is , we can perform an ultrasound to determine if there is an ectopic . The other issue that is possible is that of acute appendicitis. I discussed with her the possibility of this clinical enti ty and the radiographic studies necessary to accurately determine if acute appendicitis present. This would be a CAT scan of the abdomen pelvis. There is a risk of spontaneous with radiation to her abdomen if she is in fact . There is no more accurate way to determine this. I discussed with her the risk of not performing the CAT scan of the abdomen pelvis which would be worsening condition and possible ruptured acute appendicitis if it is in fact present. She will need to determine her desire to have the CAT scan performed of her abdomen pelvis or decline the test. We will wait on the results of the test. There is a 3-hour delay in having certain labs return to us. They are working on the laboratory machines. I cannot perform a quantitative hCG or CMP or amylase and lipase at this time. I think these tests are less important. We will request a send out of these labs if the situation changes. 04/13/21 08:44 Medical decision making: This patient is no more than approximately 3 weeks . I spoke with Elin who is the wiring technician and the radiology department. She states at this point they will not see anything with ultrasound with regard to ectopic or normal uterine . It is too early. Patient is and we will discuss, again what she has decided, regarding CAT scan of the abdomen pelvis. 04/13/21 09:12 Medical decision making: After discussion of the risks benefits and alternatives to CAT scan of the abdomen pelvis to evaluate this patient for acute appendicitis, the patient has opted for the CAT scan of abdomen pelvis without contrast. She understands the low risk of spontaneous miscarriage secondary to radiation from the CAT scan. 04/13/21 09:51 CAT scan of the abdomen and pelvis without contrast shows a new prominent uterus with endometrial cavity fluid. There is new mild diffuse fecal stasis. There is a normal appendix. Counseled pt/family regarding: lab results, diagnosis, need for follow-up - Departure Clinical Impression: UTI (urinary tract infection) during Condition: Stable Critical Care Time: No Referrals: JOS NUÑEZ [Primary Care Provider] - Additional Instructions: Drink plenty of fluids. Take your medications as prescribed. Follow-up with your machine straw hat presser and primary care physician for further management. Prescriptions: Cephalexin Mh 500 mg [Keflex 500 mg] 500 mg PO TID #21 capsule
[2021-04-13] MEDS ORDERED: Sodium Chloride 0.9% 1000 ML 1,000 ML ONE ×2 (07:34→10:19)
[2021-04-13 07:46] LABS: Absolute Neutrophil Ct (ANC) 8.38 (1.4-6.9); BASOPHIL % 0.4 % (0.0-0.4); Basophil (Absolute #) 0.04 (0-0.4); Eosinophil % 2.6 % (0.00-5.0); Eosinophil (Absolute #) 0.29 (0-0.5); Hematocrit 40.4 % (35-47); Hemoglobin 13.2 gm/dl (12.0-16.0); Lymphocyte (Absolute #) 1.71 (1.0-4.6); Lymphocytes % 15.4 % (24.0-44.0); Mean Cell Volume 91.8 fl (78-100); Mean Corpuscular Hgb Concent. 32.7 g/dl (32-36); Mean Platelet Volume 10.5 fl (7.5-11.0); Monocyte (Absolute #) 0.71 (0.0-1.3); Monocytes % 6.4 % (0.0-12.0); Neutrophil % 75.2 % (36.0-66.0); Platelet Count 292 K/mm3 (150-450); Red Cell Distribution Width 13.2 % (11.5-14.0); White Blood Count 11.1 K/mm3 (4.0-10.5)
[2021-04-13 07:55] LABS: Appearance SLIGHTLY CLOUDY (CLEAR); Bacteria PACKED /HPF (NEGATIVE); Bilirubin NEGATIVE (NEGATIVE); Blood NEGATIVE Ery/ul (0-5); Glucose NEGATIVE (NEGATIVE); Ketones NEGATIVE (NEGATIVE); Leukocyte Esterase NEGATIVE (NEGATIVE); Mucus SLIGHT /HPF (NEGATIVE); Nitrite POSITIVE (NEGATIVE); Protein,Urine Dip NEGATIVE (Negative); Specific Gravity 1.009 (1.005-1.025); Urobilinogen NEGATIVE mg/dL (0-1)
[2021-04-13 08:10] LABS: ISTAT CREA 0.5 mg/dL (0.6-1.3)
[2021-04-13] MEDS ORDERED: ROCEPHIN 1 Gm-D5w 50 ml Bag** 1 G/50 ML IVPB IV STA (08:36)
[2021-04-13] MEDS ORDERED: ROCEPHIN 1 Gm-D5w 50 ml Bag** 1 G/50 ML IVPB IV ONE (08:39)
--- NOTE | 2021-04-13 09:45 | XRAY ---
Indication: Right lower quadrant pain 2-3 weeks. Diarrhea and constipation. Multiple contiguous axial images obtained through the abdomen and pelvis without contrast. Comparison: March 30, 2018. Lung bases are clear. Heart not enlarged. Noncontrasted stomach and bowel loops nonobstructed again with normal air-filled appendix. There is now mild diffuse scattered colonic fecal debris throughout. No free fluid/air. Uterus is now prominent with fluid in the endometrial cavity at the level of fundus up to 1.2 cm in thickness. Remaining liver, gallbladder, pancreas, spleen, adrenal glands, kidneys, ureters, bladder, and aorta are unremarkable for noncontrast exam. Osseous structures intact. Impression: 1. New prominent uterus with endometrial cavity fluid. Pelvic sonogram may yield further information if clinically warranted. 2. New mild diffuse fecal stasis. 3. Remaining CT abdomen/pelvis without contrast exam is negative.
[2021-04-13 10:18] VITALS: BP 156/107; PULSE 68; O2SAT 98
== END 2021-04-13 10:18 | disposition home or self-care (01) ==
LOC: ED 07:04
DX: R11.2 Nausea with vomiting, unspecified (principal); O23.41 Unspecified infection of urinary tract in pregnancy, first trimester; Z3A.00 Weeks of gestation of pregnancy not specified
CPT/HCPCS: 36000; 36415; 74176; 80047; 81001; 81025; 83605; 85025; 87040; 87077; 87086; 87186; 96360; 96365; 99284; J0696

== ENCOUNTER 2021-07-08 05:47 | Emergency (ER) | payer OTHER ==
--- NOTE | 2021-07-08 05:55 | ERPHSYRPT ---
- History of Present Illness Time Seen by Provider: 07/08/21 05:55 Source: patient Exam Limitations: no limitations Physician History: This is a 26-year-old white female patient of Dr. Rogers who woke up with a left sided earache that began earlier this morning. Patient has a history of migraine headaches and anxiety issues. She has no known drug allergies. Patient was brought in by her boyfriend Timing/Duration: abrupt onset Severity: moderate ENT Location: ear (L) Prearrival Treatment: no prearrival treatment Modifying Factors: Improves With: activity Associated Symptoms: ear pain (L), No headache, No hearing loss Allergies/Adverse Reactions: No Known Drug Allergies Allergy (Verified 04/13/21 07:12) Hx Tetanus, Diphtheria Vaccination/Date Given: Yes Hx Influenza Vaccination/Date Given: No Hx Pneumococcal Vaccination/Date Given: No Travel Risk - International Travel Have you traveled outside of the country in past 3 weeks: No - Coronavirus Screening Are you exhibiting any of the following symptoms?: No Close contact with a COVID-19 positive Pt in past 14-21 Days: No - Vaccine Status Have you recieved a Covid-19 vaccination: No - Review of Systems Constitutional: No Symptoms Eyes: No Symptoms Ears, Nose, & Throat: Ear Pain (Left) Respiratory: No Symptoms Cardiac: No Symptoms Abdominal/Gastrointestinal: No Symptoms Genitourinary Symptoms: No Symptoms Musculoskeletal: No Symptoms Skin: No Symptoms Neurological: No Symptoms Psychological: No Symptoms Endocrine: No Symptoms Hematologic/Lymphatic: No Symptoms Immunological/Allergic: No Symptoms All Other Systems: Reviewed and Negative - Past Medical History Pertinent Past Medical History: Yes Neurological History: Migraines ENT History: No Pertinent History Cardiac History: No Pertinent History Respiratory History: No Pertinent History Endocrine Medical History: No Pertinent History Musculoskeletal History: Fractures GI Medical History: No Pertinent History History: No Pertinent History Psycho-Social History: Anxiety, Depression, Other Female Reproductive Disorders: No Pertinent History Other Medical History: Fracture Pelvis 15 Years Old, PTSD, - Past Surgical History Past Surgical History: Yes Neuro Surgical History: No Pertinent History Cardiac: No Pertinent History Respiratory: No Pertinent History Gastrointestinal: No Pertinent History Genitourinary: No Pertinent History Musculoskeletal: No Pertinent History, Orthopedic Surgery Female Surgical History: Section Other Surgical History: Finger surgery Dec 17 (HX OF 4 FINGER SURGERIES) - Social History Smoking Status: Current every day smoker How long have you smoked: 5 Exposure to second hand smoke: Yes Drug Use: none Patient Lives Alone: No - Nursing Vital Signs Nursing Vital Signs: Initial Vital Signs Temperature 97.2 F 07/08/21 05:51 Pulse Rate 87 07/08/21 05:51 Respiratory Rate 18 07/08/21 05:51 O2 Sat by Pulse Oximetry 98 07/08/21 05:51 Pain Scale Pain Intensity 7 - Physical Exam General Appearance: mild distress, alert, anxiety Ear Exam: right ear: canal normal, TM normal, left ear: swelling, tenderness, TM dull, bilateral ear: auricle normal Nasal Exam: normal inspection Throat Exam: normal Neck Exam: normal inspection, non-tender, supple, full range of motion, trachea midline Cardiovascular/Respiratory Exam: chest non-tender, no respiratory distress Abdominal Exam: non-tender Neurologic Exam: alert, oriented x 3, cooperative, executive administrative assistant II-XII nml as tested, normal mood/affect, nml cerebellar function, nml station & gait, sensation nml Skin Exam: normal color, warm, dry SpO2 Interpretation: normal O2 Delivery: Room Air - Course Nursing assessment & vital signs reviewed: Yes - Progress Counseled pt/family regarding: diagnosis, need for follow-up - Departure Departure Disposition: Home Clinical Impression: Left otitis media Condition: Stable Critical Care Time: No Referrals: JOS ROGERS [Primary Care Provider] - Additional Instructions: Take medication as prescribed. Follow-up with your primary care physician for persistent symptoms. Prescriptions: Hydrocodone/Acetaminophen [Hydrocodone-Acetamn 7.5-325/15] 10 ml PO Q8H PRN PRN #120 ml MDD 30 ml PRN Reason: Cough Prednisone 10 mg [Deltasone 10 mg] 10 mg PO TID #12 tablet Cephalexin Mh 500 mg [Keflex 500 mg] 500 mg PO TID #21 cap
[2021-07-08] MEDS ORDERED: HYDROCODONE-ACETAMIN 2.5-108/5 ML SOLUTION PO STA (06:04)
[2021-07-08] MEDS ORDERED: KEFLEX 500 MG PO ONE (06:04)
[2021-07-08] MEDS ORDERED: DELTASONE 20 MG PO ONE (06:05)
[2021-07-08] MEDS ORDERED: HYDROCODONE-ACETAMIN 2.5-108/5 ML SOLUTION ONE (06:11)
[2021-07-08] MEDS ORDERED: KEFLEX 500 MG ONE (06:11)
[2021-07-08] MEDS ORDERED: DELTASONE 20 MG ONE (06:11)
[2021-07-08] MEDS ORDERED: Catapres 0.1 MG ONE ×2 (06:56→07:37)
[2021-07-08] MEDS ORDERED: Catapres 0.1 MG PO ONE ×2 (06:56→07:42)
[2021-07-08 08:19] VITALS: O2SAT 98
[2021-07-08 08:58] VITALS: BP 163/116; PULSE 98
== END 2021-07-08 08:58 | disposition home or self-care (01) ==
LOC: ED 05:47
DX: H66.92 Otitis media, unspecified, left ear (principal); I10 Essential (primary) hypertension; Z79.891 Long term (current) use of opiate analgesic
CPT/HCPCS: 99284; A9270-GY

== ENCOUNTER 2023-09-25 15:08 | Emergency (ER) | payer OTHER ==
[2023-09-25 15:21] VITALS: RESP 20; TEMP 98; O2SAT 98
[2023-09-25 15:36] LABS: Absolute Neutrophil Ct (ANC) 6.54 x10^3/uL (1.4-6.9); BASOPHIL % 0.5 % (0.0-0.4); Basophil (Absolute #) 0.04 x10^3/uL (0-0.4); Eosinophil % 1.6 % (0.00-5.0); Eosinophil (Absolute #) 0.13 x10^3/uL (0-0.5); Hematocrit 41.1 % (35-47); Hemoglobin 13.5 g/dL (12.0-16.0); IMMATURE GRAN # 0.02 x10^3u/L (0.00-0.03); IMMATURE GRAN % 0.2 % (0.00-0.4); Mean Cell Volume 88.6 fL (78-100); Mean Corpuscular Hemoglobin 29.1 pg (26-32); Mean Corpuscular Hgb Concent. 32.8 g/dL (32-36); Mean Platelet Volume 9.5 fL (7.5-11.0); Monocyte (Absolute #) 0.55 x10^3/uL (0.0-1.3); Monocytes % 6.7 % (0.0-12.0); Platelet Count 301 x10^3/uL (150-450); Red Blood Count 4.64 x10^6/uL (4.1-5.4); Red Cell Distribution Width 13.3 % (11.5-14.0); White Blood Count 8.2 x10^3/uL (4.0-10.5)
[2023-09-25 15:51] LABS: ALBUMIN 3.8 g/dL (3.5-5.0); BILIRUBIN,TOTAL 0.2 mg/dL (0.2-1.3); Calcium 8.7 mg/dL (8.4-10.2); Creatinine 1 0.6 mg/dL (0.52-1.04); EST GLOMERULAR FILTRATION RATE 124.5 ML/MIN; Potassium 3.3 mmol/L (3.5-5.1); Total Protein 6.9 g/dL (6.3-8.2)
[2023-09-25] MEDS ORDERED: TORAdol 30 mg Injection IV ONE (16:27)
--- NOTE | 2023-09-25 16:29 | ERPHSYRPT ---
- History of Present Illness Time Seen by Provider: 09/25/23 15:30 Historian: patient Exam Limitations: no limitations Patient Subjective Stated Complaint: Pt states "There is something going on with my stomach. I am having the most god awful rotten egg burps and my belly is killing me." Triage Nursing Assessment: Pt presented alert and oriented X3, skin pwd. Pt ambulates with an upright steady gait, able to speak in clear full sentences. Pt resting comfortably on the bed. Physician History: 28-year-old female presents to our ED for evaluation of left sided abdominal pain. Pain started 2 to 3 days ago. Patient states she has been "burping" a foul egg like older. No trauma no fever. Symptoms are ongoing. No nausea vomiting or diarrhea. Last bowel movement was yesterday and normal in caliber. No blood. No history of kidney stones. Symptoms are progressive. No chest pain or shortness of breath. Patient states he is otherwise healthy. She voices no other complaints or concerns this time. Portions of this note were created with voice recognition technology. There may be grammatical, spelling, punctuation or sound alike errors Timing/Duration: day(s) (3 days ago) Activities at Onset: none Quality: aching Abdominal Pain Onset Location: flank Pain Radiation: no radiation Severity of Pain-Max: moderate Severity of Pain-Current: mild Modifying Factors: Improves With: palpation Associated Symptoms: denies symptoms Previous symptoms: no prior history Allergies/Adverse Reactions: No Known Drug Allergies Allergy (Verified 07/08/21 06:56) Home Medications: Etonogestrel [Nexplanon] 68 mg SQ UD 09/25/23 [History] Hx Tetanus, Diphtheria Vaccination/Date Given: Yes Hx Influenza Vaccination/Date Given: No Hx Pneumococcal Vaccination/Date Given: No Immunizations Up to Date: No Travel Risk - International Travel Have you traveled outside of the country in past 3 weeks: No - Coronavirus Screening Are you exhibiting any of the following symptoms?: No Close contact with a COVID-19 positive Pt in past 14-21 Days: No - Vaccine Status Have you recieved a Covid-19 vaccination: No - Review of Systems Constitutional: No Symptoms, No Fever, No Chills Eyes: No Symptoms Ears, Nose, & Throat: No Symptoms Respiratory: No Symptoms, No Cough, No Dyspnea Cardiac: No Symptoms, No Chest Pain, No Edema, No Syncope Abdominal/Gastrointestinal: No Symptoms, No Abdominal Pain, No Nausea, No Vomiting, No Diarrhea Genitourinary Symptoms: No Symptoms, No Dysuria Musculoskeletal: No Symptoms, No Back Pain, No Neck Pain Skin: No Symptoms, No Rash Neurological: No Symptoms, No Dizziness, No Focal Weakness, No Sensory Changes Psychological: No Symptoms Endocrine: No Symptoms Hematologic/Lymphatic: No Symptoms Immunological/Allergic: No Symptoms All Other Systems: Reviewed and Negative - Past Medical History Pertinent Past Medical History: Yes Neurological History: Migraines ENT History: No Pertinent History Cardiac History: No Pertinent History Respiratory History: No Pertinent History Endocrine Medical History: No Pertinent History Musculoskeletal History: Fractures GI Medical History: No Pertinent History History: No Pertinent History Psycho-Social History: Anxiety, Depression, Other Female Reproductive Disorders: No Pertinent History Other Medical History: Fracture Pelvis 15 Years Old, PTSD, - Past Surgical History Past Surgical History: Yes Neuro Surgical History: No Pertinent History Cardiac: No Pertinent History Respiratory: No Pertinent History Gastrointestinal: No Pertinent History Genitourinary: No Pertinent History Musculoskeletal: No Pertinent History, Orthopedic Surgery Female Surgical History: Section Other Surgical History: Finger surgery Dec 17 (HX OF 4 FINGER SURGERIES) - Social History Smoking Status: Current every day smoker How long have you smoked: 5 Exposure to second hand smoke: Yes Drug Use: none Patient Lives Alone: No - Female History Hx Last Menstrual Period: 2020 Hx Now: No - Nursing Vital Signs Nursing Vital Signs: Initial Vital Signs Temperature 98.0 F 09/25/23 15:15 Pulse Rate 112 H 09/25/23 15:15 Respiratory Rate 20 09/25/23 15:15 O2 Sat by Pulse Oximetry 98 09/25/23 15:15 Pain Scale Pain Intensity 0 - Physical Exam General Appearance: no apparent distress, alert Eye Exam: PERRL/EOMI, eyes nml inspection Ears, Nose, Throat Exam: normal ENT inspection, pharynx normal, moist mucous membranes Neck Exam: normal inspection, non-tender, supple, full range of motion Respiratory Exam: normal breath sounds, lungs clear, No respiratory distress Cardiovascular Exam: regular rate/rhythm, normal heart sounds Gastrointestinal/Abdomen Exam: soft, No tenderness, No mass Back Exam: normal inspection, normal range of motion, No CVA tenderness, No vertebral tenderness Extremity Exam: normal inspection, normal range of motion, pelvis stable Neurologic Exam: alert, oriented x 3, cooperative, normal mood/affect, nml cerebellar function, sensation nml, No motor deficits Skin Exam: normal color, warm, dry Lymphatic Exam: No adenopathy SpO2 Interpretation: normal SpO2: 98 O2 Delivery: Room Air - Course Nursing assessment & vital signs reviewed: Yes Ordered Tests: Active Orders 24 hr Category Date Time Status IV Insertion STAT Care 09/25/23 15:25 Active ABDOMEN AND PELVIS W/0 CONTRAS [CT] Stat Exams 09/25/23 15:25 Completed CBC W DIFF Stat Lab 09/25/23 15:30 Completed CMP Stat Lab 09/25/23 15:30 Completed HCG QUALITATIVE, URINE Stat Lab 09/25/23 16:11 Completed LIPASE Stat Lab 09/25/23 15:30 Completed TROPONIN Q4H Lab 09/25/23 15:30 Completed TROPONIN Q4H Lab 09/25/23 19:30 Ordered TROPONIN Q4H Lab 09/25/23 23:30 Ordered UA W/RFX UR CULTURE Stat Lab 09/25/23 16:11 Completed Medication Summary Discontinued Medications Generic Name Dose Route Start Last Admin Trade Name Freq PRN Reason Stop Dose Admin Ketorolac Tromethamine 30 mg 09/25/23 16:27 09/25/23 16:57 Ketorolac Tromethamine 30 Mg/Ml Inj IV 09/25/23 16:28 30 mg STAT ONE Administration Ketorolac Tromethamine Confirm 09/25/23 16:56 Ketorolac Tromethamine 30 Mg/Ml Inj Administered 09/25/23 16:57 Dose 30 mg .ROUTE .K-MED ONE Lab/Rad Data: Laboratory Result Diagrams 09/25/23 15:30 09/25/23 15:30 Laboratory Results 09/25/23 09/25/23 09/25/23 Range/Units 16:11 16:11 15:30 WBC (4.0-10.5) x10^3/uL RBC (4.1-5.4) x10^6/uL Hgb (12.0-16.0) g/dL Hct (35-47) % MCV (78-100) fL MCH (26-32) pg MCHC (32-36) g/dL RDW (11.5-14.0) % Plt Count (150-450) x10^3/uL MPV (7.5-11.0) fL Gran % (36.0-66.0) % Immature Gran % (Auto) (0.00-0.4) % Nucleat RBC Rel Count (0.00-0.1) % Eos # (Auto) (0-0.5) x10^3/uL Immature Gran # (Auto) (0.00-0.03) x10^3u/L Absolute Lymphs (auto) (1.0-4.6) x10^3/uL Absolute Monos (auto) (0.0-1.3) x10^3/uL Absolute Nucleated RBC (0.00-0.01) x10^3u/L Lymphocytes % (24.0-44.0) % Monocytes % (0.0-12.0) % Eosinophils % (0.00-5.0) % Basophils % (0.0-0.4) % Absolute Granulocytes (1.4-6.9) x10^3/uL Basophils # (0-0.4) x10^3/uL Sodium (137-145) mmol/L Potassium (3.5-5.1) mmol/L Chloride (98-107) mmol/L Carbon Dioxide (22-30) mmol/L Anion Gap (5-15) MEQ/L BUN (7-17) mg/dL Creatinine (0.52-1.04) mg/dL Estimated GFR ML/MIN Glucose (74-106) mg/dL Calcium (8.4-10.2) mg/dL Total Bilirubin (0.2-1.3) mg/dL AST (14-36) U/L ALT (0-35) U/L Alkaline Phosphatase (38-126) U/L Troponin I < 0.012 (0.000-0.034) ng/mL Serum Total Protein (6.3-8.2) g/dL Albumin (3.5-5.0) g/dL Lipase (23-300) U/L Urine Color Yellow (Yellow) Urine Appearance Cloudy A (Clear) Urine pH 6.5 (4.6-8.0) Ur Specific [place] 1.015 (1.005-1.030) Urine Protein Negative (Negative) Urine Glucose (UA) Negative (Negative) mg/dL Urine Ketones Negative (Negative) Urine Blood Negative (Negative) Urine Nitrite Negative (Negative) Urine Bilirubin Negative (Negative) Urine Urobilinogen 0.2 (0.2) mg/dL Ur Leukocyte Esterase Negative (Negative) U Hyaline Cast (Auto) NONE SEEN (0-2) /LPF Urine Microscopic RBC 0-2 (0-5) /HPF Urine Microscopic WBC 0-2 (0-5) /HPF Ur Epithelial Cells Moderate A (None Seen) /HPF Urine Bacteria None Seen (None Seen) /HPF Urine Culture Reflexed NO (NO) Urine HCG, Qual NEGATIVE (NEGATIVE) 09/25/23 09/25/23 Range/Units 15:30 15:30 WBC 8.2 (4.0-10.5) x10^3/uL RBC 4.64 (4.1-5.4) x10^6/uL Hgb 13.5 (12.0-16.0) g/dL Hct 41.1 (35-47) % MCV 88.6 (78-100) fL MCH 29.1 (26-32) pg MCHC 32.8 (32-36) g/dL RDW 13.3 (11.5-14.0) % Plt Count 301 (150-450) x10^3/uL MPV 9.5 (7.5-11.0) fL Gran % 80.0 H (36.0-66.0) % Immature Gran % (Auto) 0.2 (0.00-0.4) % Nucleat RBC Rel Count 0.0 (0.00-0.1) % Eos # (Auto) 0.13 (0-0.5) x10^3/uL Immature Gran # (Auto) 0.02 (0.00-0.03) x10^3u/L Absolute Lymphs (auto) 0.90 L (1.0-4.6) x10^3/uL Absolute Monos (auto) 0.55 (0.0-1.3) x10^3/uL Absolute Nucleated RBC 0.00 (0.00-0.01) x10^3u/L Lymphocytes % 11.0 L (24.0-44.0) % Monocytes % 6.7 (0.0-12.0) % Eosinophils % 1.6 (0.00-5.0) % Basophils % 0.5 (0.0-0.4) % Absolute Granulocytes 6.54 (1.4-6.9) x10^3/uL Basophils # 0.04 (0-0.4) x10^3/uL Sodium 134 L (137-145) mmol/L Potassium 3.3 L (3.5-5.1) mmol/L Chloride 102 (98-107) mmol/L Carbon Dioxide 24 (22-30) mmol/L Anion Gap 11.0 (5-15) MEQ/L BUN 12 (7-17) mg/dL Creatinine 0.60 (0.52-1.04) mg/dL Estimated GFR 124.5 ML/MIN Glucose 134 H (74-106) mg/dL Calcium 8.7 (8.4-10.2) mg/dL Total Bilirubin 0.20 (0.2-1.3) mg/dL AST 20 (14-36) U/L ALT 21 (0-35) U/L Alkaline Phosphatase 102 (38-126) U/L Troponin I (0.000-0.034) ng/mL Serum Total Protein 6.9 (6.3-8.2) g/dL Albumin 3.8 (3.5-5.0) g/dL Lipase 65 (23-300) U/L Urine Color (Yellow) Urine Appearance (Clear) Urine pH (4.6-8.0) Ur Specific [place] (1.005-1.030) Urine Protein (Negative) Urine Glucose (UA) (Negative) mg/dL Urine Ketones (Negative) Urine Blood (Negative) Urine Nitrite (Negative) Urine Bilirubin (Negative) Urine Urobilinogen (0.2) mg/dL Ur Leukocyte Esterase (Negative) U Hyaline Cast (Auto) (0-2) /LPF Urine Microscopic RBC (0-5) /HPF Urine Microscopic WBC (0-5) /HPF Ur Epithelial Cells (None Seen) /HPF Urine Bacteria (None Seen) /HPF Urine Culture Reflexed (NO) Urine HCG, Qual (NEGATIVE) - Progress Progress: improved Progress Note: Patient reassessed. Patient is pain-free. Patient currently eating in the room. CT abdomen pelvis shows a small fat-containing umbilical hernia otherwise negative. Chemistry reveals a potassium of 3.3. Patient is currently eating and states that she does not want a potassium pill at this time. CMP essen amber nonremarkable. Lipase negative. Troponin negative. Urinalysis negative for urinary tract infection. Patient received Toradol for pain control. Will discharge patient home at this time. Patient agrees to follow-up with her primary care doctor within 48 hours for reevaluation. Portions of this note were created with voice recognition technology. There may be grammatical, spelling, punctuation or sound alike errors Complexity of problems addressed is moderate acute complicated No critical care time Complexity of data reviewed and analyzed is moderate. Test ordered test rev iewed. Results analyzed and correlated clinically with history and physical exam. Risk of complication and or risk of morbidity/mortality of patient management is moderate. No controlled medications administered. Vital stable. Time spent to discharge patient is approximately 15 minutes. Plan of care established for shared decision making. No social determinants of health present to impede follow-up. Portions of this note were created with voice recognition technology. There may be grammatical, spelling, punctuation or sound alike errors 09/25/23 18:42 Counseled pt/family regarding: lab results, diagnosis, need for follow-up, rad results - Departure Departure Disposition: Home Clinical Impression: Umbilical hernia, Abdominal pain Condition: Stable Critical Care Time: No Referrals: ALEJANDRO LÓPEZ MD [Primary Care Provider] - Follow up/PCP as directed Additional Instructions: Discharge/Care Plan SHANE GOLDMAN was seen on 09/25/23 in the Emergency Room. The patient was counseled regarding Diagnosis,Lab results, Imaging studies, need for follow up and when to return to the Emergency Room. Prescriptions given: Discharge Note I have spoken with the patient and/or caregivers. I have explained the patient's condition, diagnosis and treatment plan based on the information available to me at this time. I have answered the patient's and/or caregiver's questions and addressed any concerns. The patient and/or caregivers have as good understanding of the patient's diagnosis, condition and treatment plan as can be expected at this point. The vital signs have been stable. The patient's condition is stable and appropriate for discharge from the emergency department. The patient will pursue further outpatient evaluation with the primary care physician or other designated or consulting physician as outlined in the discharge instructions. The patient and/or caregivers are agreeable to this plan of care and follow-up instructions have been explained in detail. The patient and/or caregivers have received these instruction. The patient/and or caregivers are aware that any significant change in condition or worsening of symptoms should prompt an immediate return to this or the closest emergency department or call 911.
[2023-09-25 16:45] LABS: HCG URINE TEST NEGATIVE (NEGATIVE)
[2023-09-25 16:47] LABS: Appearance Cloudy (Clear); Bacteria None Seen /HPF (None Seen); Bilirubin Negative (Negative); Blood Negative (Negative); Epithelial Cells Moderate /HPF (None Seen); Glucose, Urine Negative (Negative); Hyaline Casts NONE SEEN /LPF (0-2); Ketones Negative (Negative); Leukocyte Esterase Negative (Negative); Nitrite Negative (Negative); Ph 6.5 (4.6-8.0); Protein,Urine Dip Negative (Negative); RBC 0-2 /HPF (0-5); Specific Gravity 1.015 (1.005-1.030); Urobilinogen 0.2 mg/dL (0.2)
[2023-09-25 16:48] LABS: ADD URINE CULTURE? NO (NO); WBC 0-2 /HPF (0-5)
[2023-09-25] MEDS ORDERED: TORAdol 30 mg Injection ONE (16:56)
[2023-09-25 16:59] VITALS: BP 183/115
[2023-09-25 17:23] VITALS: PULSE 94
--- NOTE | 2023-09-25 18:22 | XRAY ---
CLINICAL HISTORY:pain COMPARISON:04/13/2021. TECHNIQUE:A CT scan of the abdomen and pelvis was performed without IV contrast. No oral contrast. Coronal and sagittal reconstructive images were also obtained. FINDINGS: Limited organ parenchymal evaluation within the limitations of noncontrast study. A scan through the lower chest reveals unremarkable lung bases and heart. Abdomen: The liver is of average size and measures 16.5 cm. No focal or diffuse parenchymal abnormality. The portal vein, intrahepatic biliary radicals, and the bile ducts are normal. The gallbladder is distended and shows no definite stones. There is no evidence of wall thickening/ pericholecystic collection. The spleen, pancreas, and adrenal glands are unremarkable. The kidneys are normal in size and shape. No calculi or hydronephrosis. The stomach and the visualized small bowel loops are unremarkable. There is no evidence of significant mesenteric or retroperitoneal lymph node enlargement. No free fluid. Small umbilical hernia with omental fat within. Pelvis: The urinary bladder is unremarkable. The ascending colon, the transverse colon, the descending colon, and the rectosigmoid colon are unremarkable. Reproductive organs unremarkable. The pelvic vasculature is unremarkable. No evidence of pelvic lymphadenopathy. Skeletal system: No suspicious bony lesion detected. Degenerative changes are seen in the spine with narrowed L5-S1 disc space and degenerative disc lesion noted. For MRI assessment if clinically indicated. IMPRESSION: Unremarkable non-contrast CT of the abdomen and pelvis. No interval newly developed abdomen/pelvis lesion compared to previous study. Noted narrowed L5-S1 disc space and degenerative disc lesion. For MRI assessment if clinically indicated. Electronically Signed by: Rocky Ga MD. (09/25/2023 18:17:38 EST)
== END 2023-09-25 18:55 | disposition home or self-care (01) ==
LOC: ED 15:08
DX: K42.9 Umbilical hernia without obstruction or gangrene (principal); R10.9 Unspecified abdominal pain; Z28.310 Unvaccinated for COVID-19; Z72.0 Tobacco use
CPT/HCPCS: 36000; 36415; 74176; 80053; 81001; 81025; 83690; 84484; 85025; 96374; 99284; J1885